=== PATIENT | male | born 1995 | race Asian ===

== ENCOUNTER 2018-09-09 11:56 | Inpatient (IN) | payer MEDICAID, OTHER ==
[~2018-09-09] VITALS: Ht 167.6 cm; Wt 60.0 kg
--- NOTE | 2018-09-09 12:04 | ERD ---
ER Documentation Chief Complaint Chief Complaint SOB HPI The patient is a 23-year-old male, presenting to the ER because of acute resp iratory symptoms. He came from a [facility]. According to the [facility] nurse, he vomited a large amount last night, and has respiratory symptoms this morning. He is unable to provide any history, the history is obtained from the [facility] nurse, medical record and EMS. Past medical history: Cerebral palsy, asthma, cardioplegic, anxiety, history of esophagitis, dysphagia Past surgical history: G-tube ROS Unable to obtain due to his condition Physical Exam Vitals Vital Signs Date Temp Pulse Resp B/P (MAP) Pulse Ox O2 O2 Flow FiO2 Time Delivery Rate 09/09/18 Nasal 2.0 13:30 Cannula 09/09/18 Nasal 2 13:30 Cannula 09/09/18 99.7 118 18 130/82 99 12:00 (98) Physical Exam Const: No acute distress. Head: Atraumatic. Eyes: Normal Conjunctiva. ENT: Normal External Ears, Nose and Mouth. Neck: Full range of motion. No meningismus. Resp: Tachypneic, clear to auscultation anterior and lateral Cardio: Regular tachycardic. Abd: Soft, non distended, normal bowel sounds, non tender. Skin: No petechiae or rashes. Back: No midline or flank tenderness. Ext: Contracted Neur: Awake. Limited due to his condition Psych: Unable to perform due to his condition Result Diagram: 09/09/18 1222 09/09/18 1222 Results 24 hrs Laboratory Tests Test 09/09/18 12:16 09/09/18 12:22 09/09/18 12:57 POC Venous Lactate 2.5 mmol/L White Blood Count 12.1 10^3/ul Red Blood Count 5.46 10^6/ul Hemoglobin 16.6 g/dl Hematocrit 48.3 % Mean Corpuscular Volume 88.5 fl Mean Corpuscular Hemoglobin 30.4 pg Mean Corpuscular 34.4 g/dl Hemoglobin Concent Red Cell Distribution Width 11.7 % Platelet Count 249 10^3/UL Mean Platelet Volume 10.2 fl Immature Granulocytes % 0.400 % Neutrophils % 82.0 % Lymphocytes % 10.3 % Monocytes % 6.4 % Eosinophils % 0.6 % Basophils % 0.3 % Nucleated Red Blood Cells % 0.0 /100WBC Immature Granulocytes # 0.050 10^3/ul Neutrophils # 9.9 10^3/ul Lymphocytes # 1.2 10^3/ul Monocytes # 0.8 10^3/ul Eosinophils # 0.1 10^3/ul Basophils # 0.0 10^3/ul Nucleated Red Blood Cells # 0.0 10^3/ul Sodium Level 144 mmol/L Potassium Level 5.0 mmol/L Chloride Level 102 mmol/L Carbon Dioxide Level 31 mmol/L Anion Gap 11 Blood Urea Nitrogen 14 mg/dl Creatinine 0.54 mg/dl Est Glomerular Filtrat > 60 mL/min Rate mL/min Glucose Level 114 mg/dl Calcium Level 10.0 mg/dl Total Bilirubin 0.6 mg/dl Direct Bilirubin 0.00 mg/dl Indirect Bilirubin 0.6 mg/dl Aspartate Amino 55 IU/L Transf (AST/SGOT) Alanine 58 IU/L Aminotransferase (ALT/SGPT) Alkaline Phosphatase 115 IU/L Troponin I < 0.012 ng/ml Total Protein 8.9 g/dl Albumin 5.2 g/dl Globulin 3.70 g/dl Albumin/Globulin Ratio 1.40 Prothrombin Time 12.8 Sec Prothrombin Time Ratio 1.0 INR International 0.95 Normalized Ratio Activated Partial Thromboplast 32.0 Sec Time Urine Color YELLOW Urine Clarity SLIGHTLY CLOUDY Urine pH 8.0 Urine Specific [place] 1.014 Urine Ketones NEGATIVE mg/dL Urine Nitrite NEGATIVE mg/dL Urine Bilirubin NEGATIVE mg/dL Urine Urobilinogen NEGATIVE mg/dL Urine Leukocyte Esterase NEGATIVE Rosemarie/ul Urine Microscopic RBC 1 /HPF Urine Microscopic WBC 0 /HPF Urine Bacteria FEW /HPF Urine Hemoglobin NEGATIVE mg/dL Urine Glucose NEGATIVE mg/dL Urine Total Protein NEGATIVE mg/dl Current Medications Medications Dose Sig/Ginger Start Time Status Last (Trade) Ordered Route PRN Stop Time Admin Dose Reason Admin Sodium 1,800 ml BOLUS OVER 2 09/09/18 DC 09/09/18 Chloride HOURS STAT 12:05 12:42 (NS) IV* 09/09/18 12:06 Piperacillin 100 ml @ ONCE ONCE 09/09/18 DC 09/09/18 Sod/ 200 mls/hr IVPB 13:00 13:22 Tazobactam 09/09/18 13:29 Sod Procedures/MDM [place] [id number] Radiology Main Line: [phone] DIAGNOSTIC IMAGING REPORT Patient: ANGELIC KRUGER : 1995 Age: 23 Sex: M MR #: [id number] DOS: 09/09/18 1205 Ordering MD: ROCK KOWALSKI MD Location: E/R Room/Bed: PROCEDURE: XR Chest. CLINICAL INDICATION: chest pain TECHNIQUE: Single frontal view of the chest was obtained COMPARISON: None FINDINGS: The heart and mediastinum are within normal limits. The lungs are clear. There is no pleural effusion or pneumothorax. There is marked levoscoliosis of the thoracic spine. There is a healed fracture of the right humerus. RPTAT: AA IMPRESSION: No focal infiltrate. Levoscoliosis of the thoracic spine. .Rafat Roberts MD, MD Date Time Electronically viewed and signed by .Rafat Roberts MD, MD on 09/09/2018 12:31 .S/ CC: ROCK KOWALSKI MD [id number] EKG: Read by emergency physician Rate/Rhythm: Sinus tachycardia 130 beats/min QRS, ST, T-waves: No ST elevation, RWA, RSR' V1, nonspecific T abnormality Impression: Abnormal EKG MEDICAL MAKING DECISION: The patient is a 23-year-old male, presenting with acute severe sepsis of unclear etiology. He was treated with normosaline 30 mm /kg IV, Zosyn IV with good response. The differential diagnoses considered include but are not limited to aspiration pneumonia, pneumonia, UTI, pyelonephritis MDM: Patient's infectious symptoms have not stabilized and the patient is at risk of rapid decompensation. The patient will be admitted for careful hydration, antibiotic therapy, and infectious source control. SEVERE SEPSIS CRITERIA: Infectious source: unknown End organ damage indicated by: [Lactate > 2.0 mmol/L SEPSIS MANAGEMENT Time of recognition of severe sepsis: 12:45pm 3 HOUR BUNDLE Blood cultures x 2 before broad-spectrum antibiotics: [Yes] 30 ml/kg NS bolus [Completed] Initial lactate []2.5 Repeat lactate Pending CRITICAL CARE Critical care time [35] minutes Emergent fluid management while maintaining close respiratory support. Provision of immediate and broad-spectrum antibiotic therapy. Simultaneous assessment for possible sources in order to direct targeted therapy. Consideration for invasive and chemical support to prevent cardiopulmonary collapse. Critical care time is independent of procedures performed. Departure Diagnosis: Primary Impression: Severe sepsis Condition: Stable Comments I discussed the findings with the patient. I discussed the patient with the hospitalist Dr Cazares at 1:35 pm who was made aware of the lab, the treatment, the patient condition. The patient is admitted to Tel Disclaimer: Inadvertent spelling and grammatical errors are likely due to EHR/dictation software use and do not reflect on the overall quality of patient care. Also, please note that the electronic time recorded on this note does not necessarily reflect the actual time of the patient encounter. ROCK KOWALSKI MD Sep 09, 2018 12:04
[2018-09-09] MEDS ORDERED: SODIUM CHLORIDE 0.9% 1L BAG IV* STA (12:05)
[2018-09-09] MEDS ORDERED: PIPER-TAZO 3.375 GM IV (PMX) 100 ML IVPB ONE (13:00)
[2018-09-09] MEDS ORDERED: ALBU2.5V3 NEB (13:56)
[2018-09-09] MEDS ORDERED: CLON2TAB12 GTB (13:56)
[2018-09-09] MEDS ORDERED: TIZA4TAB GTB (13:59)
[2018-09-09] MEDS ORDERED: NYST15CR28 TOP (13:59)
[2018-09-09] MEDS ORDERED: CARAS GTB (13:59)
[2018-09-09] MEDS ORDERED: HYDR-843 GTB (14:01)
[2018-09-09] MEDS ORDERED: GLYC1TAB GTB (14:01)
[2018-09-09] MEDS ORDERED: BACL20TA G-TUBE (14:05)
[2018-09-09] MEDS ORDERED: LEVE500S8 G-TUBE (14:05)
[2018-09-09] MEDS ORDERED: FAMO20TA18 G-TUBE (14:05)
[2018-09-09] MEDS ORDERED: ONDA8TAB9 G-TUBE (14:05)
[2018-09-09] MEDS ORDERED: POLY17PO28 G-TUBE (14:05)
[2018-09-09] MEDS ORDERED: ACET-2047 G-TUBE (14:07)
[2018-09-09] MEDS ORDERED: TIZA2TAB PO (14:07)
--- NOTE | 2018-09-09 15:49 | HP ---
Date/Time of Note Date/Time of Note DATE: 09/09/18 TIME: 15:49 Assessment/Plan VTE Prophylaxis Pharmacological prophylaxis: LMWH Lines/Catheters IV Catheter Type (from [facility]): Saline Lock Assessment/Plan Hospital Course 23-year-old male with underlying cerebral palsy and dysphagia who had a vomiting episode on 09/08/2018 with worsening respiratory distress on 09/09/2018. In the emergency room, the patient was noticed to have sepsis with underlying le ukocytosis, tachycardia, and lactic acidosis. The patient will be admitted to inpatient setting for further treatment and evaluation. 1. Sepsis with underlying leukocytosis, lactic acidosis, and tachycardia, present on a admission. -Etiology unclear. -Possible underlying aspiration pneumonitis. -Continue antimicrobials including coverage for anaerobes. 2. Dysphagia. -Keep n.p.o. -Resume tube feedings. 3. Cerebral palsy. -Continue supportive care. Plan: The patient will be admitted to inpatient telemetry floor. The patient will be started on tube feedings. The patient will be started on DVT prophylaxis. The patient will remain a full code. Activities will be bedrest. The rest of the patient's management will be based on the clinical course and the results of diagnostic studies. The patient was seen in collaboration with Dr. Cazares. Result Diagram: 09/09/18 1222 09/09/18 1222 Results 24hrs Laboratory Tests Test 09/09/18 12:16 09/09/18 12:22 09/09/18 12:57 09/09/18 14:25 POC Venous 2.5 *H 1.3 Lactate White Blood Count 12.1 H Red Blood Count 5.46 Hemoglobin 16.6 Hematocrit 48.3 Mean Corpuscular 88.5 Volume Mean Corpuscular 30.4 Hemoglobin Mean Corpuscular 34.4 Hemoglobin Concen t Red Cell 11.7 Distribution Width Platelet Count 249 Mean Platelet 10.2 Volume Immature 0.400 Granulocytes % Neutrophils % 82.0 H Lymphocytes % 10.3 L Monocytes % 6.4 Eosinophils % 0.6 Basophils % 0.3 Nucleated Red 0.0 Blood Cells % Immature 0.050 H Granulocytes # Neutrophils # 9.9 H Lymphocytes # 1.2 Monocytes # 0.8 Eosinophils # 0.1 Basophils # 0.0 Nucleated Red 0.0 Blood Cells # Sodium Level 144 Potassium Level 5.0 Chloride Level 102 Carbon Dioxide 31 Level Anion Gap 11 Blood Urea 14 Nitrogen Creatinine 0.54 L Est Glomerular > 60 Filtrat Rate mL/min Glucose Level 114 Calcium Level 10.0 Total Bilirubin 0.6 Direct Bilirubin 0.00 Indirect 0.6 Bilirubin Aspartate Amino 55 H Transf (AST/SGOT) Alanine 58 Aminotransferase (ALT/SGPT) Alkaline 115 Phosphatase Troponin I < 0.012 Total Protein 8.9 H Albumin 5.2 H Globulin 3.70 H Albumin/Globulin 1.40 Ratio Prothrombin Time 12.8 Prothrombin Time 1.0 Ratio INR International 0.95 Normalized Ratio Activated 32.0 Partial Thrombopl ast Time Urine Color YELLOW Urine Clarity SLIGHTLY CLOUDY A Urine pH 8.0 Urine Specific 1.014 [place] Urine Ketones NEGATIVE Urine Nitrite NEGATIVE Urine Bilirubin NEGATIVE Urine NEGATIVE Urobilinogen Urine Leukocyte NEGATIVE Esterase Urine Microscopic 1 RBC Urine Microscopic 0 WBC Urine Bacteria FEW A Urine Hemoglobin NEGATIVE Urine Glucose NEGATIVE Urine Total NEGATIVE Protein HPI/ROS Admit Date/Time Admit Date/Time Hx of Present Illness This is a 23-year-old male with underlying cerebral palsy and chronically bedridden status. The patient was brought to the emergency room because of dyspnea. The patient was also reported to have vomiting last night with worsening symptoms of cough and respiratory distress. Therefore, the patient was brought to the emergency room. In the emergency room, the patient was noticed to have leukocytosis. The patient also had underlying tachycardia and febrile illness. The patient had lactic acidosis. The patient's chest x-ray was negative for any acute infiltrates. A code sepsis was activated. The patient was given IV fluid bolus. The patient was also given a single dose of IV Zosyn. The patient's urinalysis was essentially negative. The patient has underlying cerebral palsy and is nonverbal. Therefore, the details of HPI were obtained by talking to the ER staff as well as by reviewing the patient's medical records. ROS Subjective hx not possible: pt non-verbal PMH/Family/Social Past Medical History 1. Cerebral palsy. 2. Dysphagia. 3. Contractures. Coded Allergies: erythromycin base (Verified Allergy, Unknown, 09/09/18) vancomycin (Verified Allergy, Unknown, 09/09/18) Past Surgical History 1. Abdominal surgery. 2. G-tube placement. Social History The patient is bedridden. The patient is a resident of a [id number]. Alcohol Use: none Smoking Status: Never smoker Drug Use: none Exam/Review of Systems Vital Signs Vitals Vital Signs Date Temp Pulse Resp B/P (MAP) Pulse Ox O2 O2 Flow FiO2 Time Delivery Rate 09/09/18 100.2 123 22 135/84 97 Nasal 2.0 15:24 (101) Cannula Exam Exam General: Adequately build 23 year-old male lying in bed in no apparent distress. HEENT: Normocephalic, atraumatic. Eyes: Anicteric sclerae, conjunctivae clear. ENT: Nasal septum is midline, oral mucosa is dry. Neck supple, no JVD noticed. Respiratory: Bilaterally diminished breath sounds. No use of accessory muscles of respiration. No adventitious breath sounds. Cardiovascular: S1, S2 heard. Regular rate and rhythm. Abdomen: Surgical scar on the abdominal wall. Left upper quadrant G-tube in place. Genitourinary: Deferred. Extremities: No cyanosis, no clubbing, no edema. Peripheral pulses palpable. Neurologic: Encephalopathic. Contracture of the left upper extremity and right lower extremity. Skin: Normal skin turgor. No skin rashes. RAIVNDRA ELIZABETH NP Sep 09, 2018 15:49
[2018-09-09] MEDS ORDERED: NACL 0.9% 3 ML SYG IV SCH (16:00)
[2018-09-09] MEDS ORDERED: ONDANSETRON 4 MG INJ IV PRN (16:00)
[2018-09-09 17:17] VITALS: PULSE 126
[2018-09-09 18:05] VITALS: Ht 167.6 cm; Wt 60.0 kg
[2018-09-09] MEDS: PIPER-TAZO 3.375 GM IV (PMX) 100 ML IVPB SCH (18:57)
[2018-09-09] MEDS: SOD CHLORIDE 0.9% 1,000 ML IV SCH ×2 (18:57→22:20)
[2018-09-09 19:42] VITALS: PULSE 140
[2018-09-09] MEDS: ACETAMINOPHEN 650MG/20.3ML CUP GTB PRN (19:56)
[2018-09-09 20:00] VITALS: PULSE 132
[2018-09-09 20:10] VITALS: BP 128/68; PULSE 138; RESP 22
[2018-09-09] MEDS ORDERED: ONDANSETRON 4 MG TAB GTB PRN (21:00)
[2018-09-09] MEDS ORDERED: hydrOXYzine HCL 25 MG TAB GTB PRN (21:00)
[2018-09-09] MEDS ORDERED: SOD CHLORIDE 0.9% 500 ML IV ONE (21:00)
[2018-09-09] MEDS ORDERED: TIZANIDINE 2 MG TAB PO PRN (21:00)
[2018-09-09] MEDS ORDERED: ACETAMINOPHEN 325 MG TAB GTB PRN (21:00)
[2018-09-09] MEDS: ALBUTEROL 0.083% (NEB) 2.5 MG/3 ML AMP NEB SCH (21:50)
[2018-09-09] MEDS: BACLOFEN 10 MG TAB GTB SCH (22:18)
[2018-09-09] MEDS: clonAZEPAM 0.5 MG TAB GTB SCH (22:18)
[2018-09-09] MEDS: FAMOTIDINE 20 MG TAB GTB SCH (22:19)
[2018-09-09] MEDS: POLYETHYLENE GLYCOL 17 GM PACKET GTB SCH (22:19)
[2018-09-09] MEDS: LEVETIRACETAM (100 MG/ML) 5ML CUP GTB SCH (22:19)
[2018-09-09] MEDS: SUCRALFATE (100 MG/ML) 10ML CUP GTB SCH (22:19)
[2018-09-09] MEDS: NYSTATIN 15 GM CR TOP SCH (22:30)
[2018-09-09] MEDS: GLYCOPYRROLATE 1 MG TAB GTB SCH (23:53)
[2018-09-10] VITALS (15 sets, daily range): BP systolic 94–137; BP diastolic 55–79; PULSE 86–144; RESP 17–22
[2018-09-10] MEDS: PIPER-TAZO 3.375 GM IV (PMX) 100 ML IVPB SCH ×4 (00:02→18:00)
[2018-09-10] MEDS: TIZANIDINE 4 MG TAB GTB SCH ×2 (00:04→21:00)
[2018-09-10] MEDS ORDERED: LORAZEPAM 2 MG INJ IV PRN (04:00)
[2018-09-10] MEDS: NYSTATIN 15 GM CR TOP SCH ×2 (09:00→22:36)
[2018-09-10] MEDS: ALBUTEROL 0.083% (NEB) 2.5 MG/3 ML AMP NEB SCH ×2 (09:36→19:28)
[2018-09-10] MEDS: GLYCOPYRROLATE 1 MG TAB GTB SCH ×3 (10:00→22:38)
[2018-09-10] MEDS: BACLOFEN 10 MG TAB GTB SCH ×4 (10:00→22:38)
[2018-09-10] MEDS: POLYETHYLENE GLYCOL 17 GM PACKET GTB SCH ×2 (10:00→22:38)
[2018-09-10] MEDS: clonAZEPAM 0.5 MG TAB GTB SCH ×3 (10:00→22:51)
[2018-09-10] MEDS: FAMOTIDINE 20 MG TAB GTB SCH ×2 (10:00→22:37)
[2018-09-10] MEDS: LEVETIRACETAM (100 MG/ML) 5ML CUP GTB SCH ×2 (10:00→22:37)
[2018-09-10] MEDS: SUCRALFATE (100 MG/ML) 10ML CUP GTB SCH ×2 (10:00→22:37)
[2018-09-10] MEDS: ENOXAPARIN 40 MG/0.4 ML SYG SC SCH (10:55)
[2018-09-10] MEDS ORDERED: ACETAMINOPHEN 650 MG SUPP PR PRN (13:00)
--- NOTE | 2018-09-10 14:22 | PN ---
Date/Time of Note Date/Time of Note DATE: 09/10/18 TIME: 14:18 Assessment/Plan VTE Prophylaxis Risk score (from [facility])>0 risk: 4 SCD applied (from [facility]): No SCD contraindicated: other Pharmacological prophylaxis: LMWH Lines/Catheters IV [facility]from [facility] Saline Lock Urinary Cath still in place: No Assessment/Plan Assessment/Plan 1. Sepsis with underlying leukocytosis, lactic acidosis, and tachycardia, present on a admission, IVF and antibiotics 2. Likely aspiration pneumonia, on zosyn 3. Dysphagia, tube feeding. 4. Cerebral palsy. Continue supportive care. Result Diagram: 09/10/18 0842 09/10/18 0842 Results 24hrs Laboratory Tests Test 09/09/18 14:25 09/09/18 18:49 09/10/18 08:42 POC Venous Lactate 1.3 Lactic Acid Level 1.3 2.1 *H White Blood Count 14.3 H Red Blood Count 4.85 Hemoglobin 14.8 Hematocrit 44.1 Mean Corpuscular Volume 90.9 Mean Corpuscular Hemoglobin 30.5 Mean Corpuscular Hemoglobin Concent 33.6 Red Cell Distribution Width 12.0 Platelet Count 211 Mean Platelet Volume 10.0 Immature Granulocytes % 0.600 H Neutrophils % 91.0 H Lymphocytes % 4.8 L Monocytes % 3.0 Eosinophils % 0.2 Basophils % 0.4 Nucleated Red Blood Cells % 0.0 Immature Granulocytes # 0.090 H Neutrophils # 13.0 H Lymphocytes # 0.7 L Monocytes # 0.4 Eosinophils # 0.0 Basophils # 0.1 Nucleated Red Blood Cells # 0.0 Sodium Level 146 H Potassium Level 4.1 Chloride Level 106 Carbon Dioxide Level 21 # Anion Gap 19 #H Blood Urea Nitrogen 14 Creatinine 0.61 Est Glomerular Filtrat Rate mL/min > 60 Glucose Level 89 Calcium Level 9.1 Phosphorus Level 3.5 Magnesium Level 2.0 Total Bilirubin 2.2 H Direct Bilirubin 0.00 Indirect Bilirubin 2.2 H Aspartate Amino Transf (AST/SGOT) 56 H Alanine Aminotransferase (ALT/SGPT) 53 Alkaline Phosphatase 106 Total Protein 7.5 # Albumin 4.7 Globulin 2.80 Albumin/Globulin Ratio 1.67 Amylase Level 81 Lipase 37 Subjective 24 Hr Interval Summary Free Text/Dictation no distress Exam/Review of Systems Exam Vitals Vital Signs Date Temp Pulse Resp B/P (MAP) Pulse Ox O2 O2 Flow FiO2 Time Delivery Rate 09/10/18 2.0 28 13:22 09/10/18 101.2 13:19 09/10/18 141 12:13 09/10/18 18 115/58 95 11:50 (77) 09/10/18 Nasal 09:15 Cannula Intake and Output 09/09/18 09/09/18 09/10/18 1414:59 22:59 06:59 IntakeIntake Total 500 ml OutputOutput Total 450 ml BalanceBalance 50 ml Constitutional: alert, non-verbal Head: normocephalic, atraumatic Eyes: nl conjunctiva, EOMI, nl lids, PERRL ENMT: nl external ears & nose, nl lips & teeth, nl nasal mucosa & septum, mucosa pink and moist Neck: supple, non-tender Respiratory: clear to auscultation, normal air movement Cardiovascular: regular rate and rhythm Gastrointestinal: soft, nl liver, spleen Extremities: normal pulses Neurological: confused Results Results 24hrs Laboratory Tests Test 09/09/18 14:25 09/09/18 18:49 09/10/18 08:42 POC Venous Lactate 1.3 Lactic Acid Level 1.3 2.1 *H White Blood Count 14.3 H Red Blood Count 4.85 Hemoglobin 14.8 Hematocrit 44.1 Mean Corpuscular Volume 90.9 Mean Corpuscular Hemoglobin 30.5 Mean Corpuscular Hemoglobin Concent 33.6 Red Cell Distribution Width 12.0 Platelet Count 211 Mean Platelet Volume 10.0 Immature Granulocytes % 0.600 H Neutrophils % 91.0 H Lymphocytes % 4.8 L Monocytes % 3.0 Eosinophils % 0.2 Basophils % 0.4 Nucleated Red Blood Cells % 0.0 Immature Granulocytes # 0.090 H Neutrophils # 13.0 H Lymphocytes # 0.7 L Monocytes # 0.4 Eosinophils # 0.0 Basophils # 0.1 Nucleated Red Blood Cells # 0.0 Sodium Level 146 H Potassium Level 4.1 Chloride Level 106 Carbon Dioxide Level 21 # Anion Gap 19 #H Blood Urea Nitrogen 14 Creatinine 0.61 Est Glomerular Filtrat Rate mL/min > 60 Glucose Level 89 Calcium Level 9.1 Phosphorus Level 3.5 Magnesium Level 2.0 Total Bilirubin 2.2 H Direct Bilirubin 0.00 Indirect Bilirubin 2.2 H Aspartate Amino Transf (AST/SGOT) 56 H Alanine Aminotransferase (ALT/SGPT) 53 Alkaline Phosphatase 106 Total Protein 7.5 # Albumin 4.7 Globulin 2.80 Albumin/Globulin Ratio 1.67 Amylase Level 81 Lipase 37 Medications Medication Current Medications IV Flush (NS 3 ml) 3 ml PER PROTOCOL IV ; Start 09/09/18 at 16:00 Ondansetron HCl (Zofran Inj) 4 mg Q6H PRN IV NAUSEA/VOMITING Last administered on 09/09/18 23:54; Admin Dose 4 MG; Start 09/09/18 at 16:00 Piperacillin Sod/ Tazobactam Sod 100 ml @ 200 mls/hr Q6 IVPB Last administered on 09/10/18 06:26; Admin Dose 200 MLS/HR; Start 09/09/18 at 18:00 Sodium Chloride 1,000 ml @ 70 mls/hr [id number] IV Last administered on 09/09/18 22:20; Admin Dose 100 MLS/HR; Start 09/09/18 at 16:00 Acetaminophen (Tylenol Liquid) 650 mg Q4H PRN GTB MILD PAIN(1-3)OR ELEVATED TEMP Last administered on 09/09/18 19:56; Admin Dose 650 MG; Start 09/09/18 at 16:30 Enoxaparin Sodium (Lovenox) 40 mg DAILY SC Last administered on 09/10/18 10:55; Admin Dose 40 MG; Start 09/10/18 at 09:00 Acetaminophen (Tylenol Tab) 650 mg Q6H PRN GTB PAIN LEVEL 4-6; Start 09/09/18 at 21:00 Albuterol (Proventil 0.083% (Neb)) 2.5 mg BID RESP THERAPY NEB Last administered on 09/10/18 09:36; Admin Dose 2.5 MG; Start 09/09/18 at 21:00 Baclofen (Lioresal) 20 mg QID GTB Last administered on 09/09/18 22:18; Admin Dose 20 MG; Start 09/09/18 at 21:00 Clonazepam (Klonopin) 2 mg TID GTB Last administered on 09/09/18 22:18; Admin Dose 2 MG; Start 09/09/18 at 21:00 Famotidine (Pepcid) 20 mg BID GTB Last administered on 09/09/18 22:19; Admin Dose 20 MG; Start 09/09/18 at 21:00 Glycopyrrolate (Robinul) 1 mg TID GTB Last administered on 09/09/18 23:53; Admin Dose 1 MG; Start 09/09/18 at 22:00 Hydroxyzine HCl (Atarax) 25 mg Q8H PRN GTB ANXIETY; Start 09/09/18 at 21:00 Levetiracetam (Keppra Liquid) 250 mg BID GTB Last administered on 09/09/18 22:19; Admin Dose 250 MG; Start 09/09/18 at 21:00 Nystatin (Nystatin Cr) 1 applic BID TOP Last administered on 09/09/18 22:30; Admin Dose 1 APPLIC; Start 09/09/18 at 22:30 Ondansetron HCl (Zofran Tab) 8 mg Q6H PRN GTB NAUSEA AND/OR VOMITING; Start 09/09/18 at 21:00 Polyethylene Glycol (Miralax) 17 gm BID GTB Last administered on 09/09/18 22:19; Admin Dose 17 GM; Start 09/09/18 at 21:00 Sucralfate (Carafate Susp) 1 gm BID GTB Last administered on 09/09/18 22:19; Admin Dose 1 GM; Start 09/09/18 at 21:00 Tizanidine HCl (Zanaflex) 2 mg Q6H PRN PO SPASTICITY; Start 09/09/18 at 21:00 Tizanidine HCl (Zanaflex) 8 mg HS GTB Last administered on 09/10/18at 00:04; Admin Dose 8 MG; Start 09/09/18 at 22:00 Lorazepam (Ativan) 1 mg Q6H PRN IV Aggitation; Start 09/10/18 at 04:00 Acetaminophen (Tylenol Supp) 650 mg Q6H PRN MI FEVER Last administered on 09/10/18 13:19; Admin Dose 650 MG; Start 09/10/18 at 13:00 JOSE PALMA MD Sep 10, 2018 14:22
[2018-09-10] MEDS: SOD CHLORIDE 0.9% 1,000 ML IV SCH (15:54)
[2018-09-10] MEDS: ACETAMINOPHEN 650MG/20.3ML CUP GTB PRN (22:53)
[2018-09-11] VITALS (15 sets, daily range): BP systolic 92–138; BP diastolic 50–88; PULSE 79–133; RESP 17–20
[2018-09-11] MEDS: PIPER-TAZO 3.375 GM IV (PMX) 100 ML IVPB SCH ×4 (00:20→18:00)
[2018-09-11] MEDS: SOD CHLORIDE 0.9% 1,000 ML IV SCH ×3 (01:53→11:42)
[2018-09-11] MEDS: FAMOTIDINE 20 MG TAB GTB SCH ×2 (08:59→21:00)
[2018-09-11] MEDS: GLYCOPYRROLATE 1 MG TAB GTB SCH ×3 (08:59→21:00)
[2018-09-11] MEDS: POLYETHYLENE GLYCOL 17 GM PACKET GTB SCH ×2 (08:59→21:00)
[2018-09-11] MEDS: BACLOFEN 10 MG TAB GTB SCH ×4 (08:59→21:00)
[2018-09-11] MEDS: SUCRALFATE (100 MG/ML) 10ML CUP GTB SCH ×2 (08:59→21:00)
[2018-09-11] MEDS: LEVETIRACETAM (100 MG/ML) 5ML CUP GTB SCH ×2 (08:59→21:00)
[2018-09-11] MEDS: ENOXAPARIN 40 MG/0.4 ML SYG SC SCH (09:02)
[2018-09-11] MEDS: NYSTATIN 15 GM CR TOP SCH ×2 (09:08→21:00)
[2018-09-11] MEDS: clonAZEPAM 0.5 MG TAB GTB SCH ×3 (09:09→21:00)
[2018-09-11] MEDS: ALBUTEROL 0.083% (NEB) 2.5 MG/3 ML AMP NEB SCH ×2 (09:20→21:07)
--- NOTE | 2018-09-11 13:07 | PN ---
Date/Time of Note Date/Time of Note DATE: 09/11/18 TIME: 13:04 Assessment/Plan VTE Prophylaxis Risk score (from [facility] [place])>0 risk: 5 SCD applied (from [facility] [place]): No SCD contraindicated: other Pharmacological prophylaxis: LMWH Lines/Catheters IV Catheter Type (from [facility]): Peripheral IV Urinary Cath still in place: No Assessment/Plan Assessment/Plan 1. Sepsis, improving, on IVF 2. Likely aspiration pneumonia, on zosyn 3. Dysphagia, tube feeding. 4. Cerebral palsy. Continue supportive care. 5. Hypernatremia, increase water G-tube flush 6. DVT prophylaxis: lovenox Result Diagram: 09/11/18 0744 09/11/18 0744 Results 24hrs Laboratory Tests Test 09/11/18 07:44 White Blood Count 9.3 # Red Blood Count 4.73 Hemoglobin 14.4 Hematocrit 42.9 Mean Corpuscular Volume 90.7 Mean Corpuscular Hemoglobin 30.4 Mean Corpuscular Hemoglobin Concent 33.6 Red Cell Distribution Width 12.2 Platelet Count 217 Mean Platelet Volume 10.4 Immature Granulocytes % 0.400 Neutrophils % 70.7 Lymphocytes % 19.4 Monocytes % 8.3 Eosinophils % 0.8 Basophils % 0.4 Nucleated Red Blood Cells % 0.0 Immature Granulocytes # 0.040 H Neutrophils # 6.6 Lymphocytes # 1.8 Monocytes # 0.8 Eosinophils # 0.1 Basophils # 0.0 Nucleated Red Blood Cells # 0.0 Sodium Level 150 H Potassium Level 4.3 Chloride Level 108 Carbon Dioxide Level 28 Anion Gap 14 H Blood Urea Nitrogen 15 Creatinine 0.54 L Est Glomerular Filtrat Rate mL/min > 60 Glucose Level 91 Lactic Acid Level 1.7 Calcium Level 9.3 Subjective 24 Hr Interval Summary Free Text/Dictation low fever tachycardia Exam/Review of Systems Exam Vitals Vital Signs Date Temp Pulse Resp B/P (MAP) Pulse Ox O2 O2 Flow FiO2 Time Delivery Rate 09/11/18 116 12:22 09/11/18 100.1 19 117/72 95 10:00 (87) 09/11/18 2.0 09:20 09/11/18 Nasal 09:20 Cannula 09/10/18 28 13:22 Intake and Output 09/10/18 09/10/18 09/11/18 1515:00 23:00 07:00 IntakeIntake Total 140 ml 1390 ml OutputOutput Total 1000 ml 600 ml BalanceBalance -860 ml 790 ml Constitutional: alert, non-verbal Head: normocephalic, atraumatic Eyes: nl conjunctiva, EOMI, nl lids, PERRL ENMT: nl external ears & nose, nl lips & teeth Neck: supple, non-tender Respiratory: other (rhonchi) Cardiovascular: regular rate and rhythm, nl pulses; No bruits, No diastolic murmur, No edema, No gallop, No irregular rhythm, No jugular venous distention (JVD), No murmurs/extra sounds, No rub, No systolic murmur, No S3, No S4, No other Gastrointestinal: soft, nl liver, spleen Extremities: edema Neurological: confused Results Results 24hrs Laboratory Tests Test 09/11/18 07:44 White Blood Count 9.3 # Red Blood Count 4.73 Hemoglobin 14.4 Hematocrit 42.9 Mean Corpuscular Volume 90.7 Mean Corpuscular Hemoglobin 30.4 Mean Corpuscular Hemoglobin Concent 33.6 Red Cell Distribution Width 12.2 Platelet Count 217 Mean Platelet Volume 10.4 Immature Granulocytes % 0.400 Neutrophils % 70.7 Lymphocytes % 19.4 Monocytes % 8.3 Eosinophils % 0.8 Basophils % 0.4 Nucleated Red Blood Cells % 0.0 Immature Granulocytes # 0.040 H Neutrophils # 6.6 Lymphocytes # 1.8 Monocytes # 0.8 Eosinophils # 0.1 Basophils # 0.0 Nucleated Red Blood Cells # 0.0 Sodium Level 150 H Potassium Level 4.3 Chloride Level 108 Carbon Dioxide Level 28 Anion Gap 14 H Blood Urea Nitrogen 15 Creatinine 0.54 L Est Glomerular Filtrat Rate mL/min > 60 Glucose Level 91 Lactic Acid Level 1.7 Calcium Level 9.3 Medications Medication Current Medications IV Flush (NS 3 ml) 3 ml PER PROTOCOL IV ; Start 09/09/18 at 16:00 Ondansetron HCl (Zofran Inj) 4 mg Q6H PRN IV NAUSEA/VOMITING Last administered on 09/09/18at 23:54; Admin Dose 4 MG; Start 09/09/18 at 16:00 Piperacillin Sod/ Tazobactam Sod 100 ml @ 200 mls/hr Q6 IVPB Last administered on 09/11/18at 11:53; Admin Dose 200 MLS/HR; Start 09/09/18 at 18:00 Acetaminophen (Tylenol Liquid) 650 mg Q4H PRN GTB MILD PAIN(1-3)OR ELEVATED TEMP Last administered on 09/10/18 22:53; Admin Dose 650 MG; Start 09/09/18 at 16:30 Enoxaparin Sodium (Lovenox) 40 mg DAILY SC Last administered on 09/11/18 09:02; Admin Dose 40 MG; Start 09/10/18 at 09:00 Acetaminophen (Tylenol Tab) 650 mg Q6H PRN GTB PAIN LEVEL 4-6; Start 09/09/18 at 21:00 Albuterol (Proventil 0.083% (Neb)) 2.5 mg BID RESP THERAPY NEB Last administered on 09/11/18 09:20; Admin Dose 2.5 MG; Start 09/09/18 at 21:00 Baclofen (Lioresal) 20 mg QID GTB Last administered on 09/11/18 08:59; Admin Dose 20 MG; Start 09/09/18 at 21:00 Clonazepam (Klonopin) 2 mg TID GTB Last administered on 09/11/18 09:09; Admin Dose 2 MG; Start 09/09/18 at 21:00 Famotidine (Pepcid) 20 mg BID GTB Last administered on 09/11/18 08:59; Admin Dose 20 MG; Start 09/09/18 at 21:00 Glycopyrrolate (Robinul) 1 mg TID GTB Last administered on 09/11/18 08:59; Admin Dose 1 MG; Start 09/09/18 at 22:00 Hydroxyzine HCl (Atarax) 25 mg Q8H PRN GTB ANXIETY; Start 09/09/18 at 21:00 Levetiracetam (Keppra Liquid) 250 mg BID GTB Last administered on 09/11/18 08:59; Admin Dose 250 MG; Start 09/09/18 at 21:00 Nystatin (Nystatin Cr) 1 applic BID TOP Last administered on 09/11/18 09:08; Admin Dose 1 APPLIC; Start 09/09/18 at 22:30 Ondansetron HCl (Zofran Tab) 8 mg Q6H PRN GTB NAUSEA AND/OR VOMITING; Start 09/09/18 at 21:00 Polyethylene Glycol (Miralax) 17 gm BID GTB Last administered on 09/11/18 08:59; Admin Dose 17 GM; Start 09/09/18 at 21:00 Sucralfate (Carafate Susp) 1 gm BID GTB Last administered on 09/11/18 08:59; Admin Dose 1 GM; Start 09/09/18 at 21:00 Tizanidine HCl (Zanaflex) 2 mg Q6H PRN PO SPASTICITY Last administered on 09/10/18at 22:36; Admin Dose 2 MG; Start 09/09/18 at 21:00 Tizanidine HCl (Zanaflex) 8 mg HS GTB Last administered on 09/10/18at 21:00; Admin Dose 8 MG; Start 09/09/18 at 22:00 Lorazepam (Ativan) 1 mg Q6H PRN IV Aggitation; Start 09/10/18 at 04:00 Acetaminophen (Tylenol Supp) 650 mg Q6H PRN [place] FEVER Last administered on 09/10/18at 13:19; Admin Dose 650 MG; Start 09/10/18 at 13:00 Potassium Chloride 10 meq/ Sodium Chloride 1,005 ml @ 100 mls/hr Q10H3M IV ; Start 09/11/18 at 13:00; Status JOSE TYSON MD Sep 11, 2018 13:07
[2018-09-11] MEDS: POTASSIUM CHLORIDE 10 MEQ in SOD CHLORIDE 0.45% 1,000 ML IV SCH ×2 (15:01→23:25)
[2018-09-11] MEDS: TIZANIDINE 4 MG TAB GTB SCH (21:00)
[2018-09-11] MEDS ORDERED: HALOPERIDOL 5 MG INJ IM ONE (21:30)
[2018-09-11] MEDS: LORAZEPAM 2 MG INJ IV PRN (22:35)
[2018-09-11] MEDS: LEVETIRACETAM IV 250 MG in DEXTROSE 5% 100 ML IVPB SCH (23:13)
[2018-09-12] VITALS (16 sets, daily range): BP systolic 119–147; BP diastolic 65–96; PULSE 101–150; RESP 18–23
[2018-09-12] MEDS: PIPER-TAZO 3.375 GM IV (PMX) 100 ML IVPB SCH ×4 (00:30→17:30)
[2018-09-12] MEDS: ALBUTEROL 0.083% (NEB) 2.5 MG/3 ML AMP NEB SCH ×2 (08:33→20:01)
[2018-09-12] MEDS: GLYCOPYRROLATE 1 MG TAB GTB SCH ×3 (09:00→20:34)
[2018-09-12] MEDS: FAMOTIDINE 20 MG TAB GTB SCH (09:00)
[2018-09-12] MEDS: NYSTATIN 15 GM CR TOP SCH ×2 (09:00→20:36)
[2018-09-12] MEDS: SUCRALFATE (100 MG/ML) 10ML CUP GTB SCH ×2 (09:00→20:34)
[2018-09-12] MEDS: POLYETHYLENE GLYCOL 17 GM PACKET GTB SCH ×2 (09:00→20:34)
[2018-09-12] MEDS: BACLOFEN 10 MG TAB GTB SCH ×4 (09:00→20:35)
[2018-09-12] MEDS: clonAZEPAM 0.5 MG TAB GTB SCH ×3 (09:00→20:34)
[2018-09-12] MEDS: POTASSIUM CHLORIDE 10 MEQ in SOD CHLORIDE 0.45% 1,000 ML IV SCH ×2 (09:06→19:09)
[2018-09-12] MEDS: LEVETIRACETAM IV 250 MG in DEXTROSE 5% 100 ML IVPB SCH ×2 (09:48→21:54)
[2018-09-12] MEDS ORDERED: SOD CHLORIDE 0.9% 500 ML IV ONE (10:30)
--- NOTE | 2018-09-12 10:43 | CONS ---
Assessment/Plan Assessment/Plan Hospital Course (Demo Recall) Summary Assessment and Plan: Assessment: Dislodged g-tube- replaced Sepsis- improving -Questionable aspiration PNA- continue Zosyn Dysphagia- with g-tube Cerebral palsy Chronically bedridden with contractures Plan: CXR KUB with Gastrografin to confirm placement- hold TF until confirmation is confirmed Monitor labs Pt on ABX Further recommendations based on clinical course Patient seen in collaboration with Dr. Vang CC: MEMO VANG ; Consultation Date/Type/Reason Admit Date/Time Date of Consultation: Sep 12, 2018 Type of Consult GI Reason for Consultation Dislodged out-G-tube Date/Time of Note DATE: 09/12/18 TIME: 10:33 Hx of Present Illness This is a 23-year-old male who was a non-historian therefore HPI is limited and HPI obtained from medical records patient with past medical history of cerebral palsy, dysphagia requiring gastrostomy tube, chronically bedridden with contractions who is brought into the emergency department due to hernia was noted to have increased vomiting and respiratory distress. During hos pitalization patient pulled out his G-tube was reinserted during the night GI was consulted for further evaluation. At time of evaluation patient with noted dark emesis from mouth and on bed. G-tube was removed assessed and replaced without difficulty. A KUB with Gastrografin has been ordered and is currently pending his chest x-ray is also been ordered and is currently pending. Labs to check today show normal hemoglobin as well as normal WBC normal lactic acid of 1.7. Will await results of KUB with Gastrografin and chest x-ray. Dark emesis likely from G-tube trauma. We will continue to monitor Subjective hx not possible: pt non-verbal Past Medical History Home Meds Reported Medications Acetaminophen* (Acetaminophen*) 650 Mg Tablet, 650 MG G-TUBE Q6H PRN for PAIN LEVEL 4-6, #30 TAB 09/09/18 Tizanidine Hcl* (Tizanidine Hcl*) 2 Mg Tablet, 2 MG PO Q6H PRN for SPASTICITY, TAB 09/09/18 Ondansetron Hcl* (Zofran*) 8 Mg Tablet, 8 MG G-TUBE Q6H PRN for NAUSEA AND OR VOMITING, TAB 09/09/18 Polyethylene Glycol* (Polyethylene Glycol*) 17 Gm Powd.pack, 17 GM G-TUBE BID, #30 PACKET 09/09/18 Levetiracetam* (Levetiracetam*) 500 Mg/5 Ml Solution, 250 MG G-TUBE BID, ML 09/09/18 Famotidine* (Famotidine*) 20 Mg Tablet, 20 MG G-TUBE BID, #60 TAB 09/09/18 Baclofen* (Baclofen*) 20 Mg Tablet, 20 MG G-TUBE QID, TAB 09/09/18 Glycopyrrolate* (Glycopyrrolate*) 1 Mg Tablet, 1 MG GTB TID, TAB 09/09/18 Hydroxyzine Hcl* (Hydroxyzine Hcl*) 25 Mg Tablet, 25 MG GTB Q8H PRN for ANXIETY, #30 TAB 09/09/18 Tizanidine Hcl* (Tizanidine Hcl*) 4 Mg Tablet, 8 MG GTB hs, TAB 09/09/18 Sucralfate* (Carafate*) 1 Gm/10 Ml Susp, 1 GM GTB BID, EA 09/09/18 Nystatin* (Nystatin*) 15 Gm Cr, 1 APPLIC TOP BID, #1 TUB 09/09/18 Albuterol Sulfate* (Albuterol Sulfate* Neb) 0.083%-3 Ml Neb, 2.5 MG NEB BID, #30 VIAL 09/09/18 Clonazepam* (Clonazepam*) 2 Mg Tablet, 2 MG GTB TID, TAB 09/09/18 Medications Current Medications IV Flush (NS 3 ml) 3 ml PER PROTOCOL IV ; Start 09/09/18 at 16:00 Ondansetron HCl (Zofran Inj) 4 mg Q6H PRN IV NAUSEA/VOMITING Last administered on 09/09/18at 23:54; Admin Dose 4 MG; Start 09/09/18 at 16:00 Piperacillin Sod/ Tazobactam Sod 100 ml @ 200 mls/hr Q6 IVPB Last administered on 09/12/18at 05:53; Admin Dose 200 MLS/HR; Start 09/09/18 at 18:00 Acetaminophen (Tylenol Liquid) 650 mg Q4H PRN GTB MILD PAIN(1-3)OR ELEVATED TEMP Last administered on 09/10/18at 22:53; Admin Dose 650 MG; Start 09/09/18 at 16:30 Enoxaparin Sodium (Lovenox) 40 mg DAILY SC Last administered on 09/11/18 09:02; Admin Dose 40 MG; Start 09/10/18 at 09:00 Acetaminophen (Tylenol Tab) 650 mg Q6H PRN GTB PAIN LEVEL 4-6; Start 09/09/18 at 21:00 Albuterol (Proventil 0.083% (Neb)) 2.5 mg BID RESP THERAPY NEB Last administered on 09/12/18 08:33; Admin Dose 2.5 MG; Start 09/09/18 at 21:00 Baclofen (Lioresal) 20 mg QID GTB Last administered on 09/11/18 17:08; Admin Dose 20 MG; Start 09/09/18 at 21:00 Clonazepam (Klonopin) 2 mg TID GTB Last administered on 09/11/18 14:18; Admin Dose 2 MG; Start 09/09/18 at 21:00 Famotidine (Pepcid) 20 mg BID GTB Last administered on 09/11/18 08:59; Admin Dose 20 MG; Start 09/09/18 at 21:00 Glycopyrrolate (Robinul) 1 mg TID GTB Last administered on 09/11/18 14:17; Admin Dose 1 MG; Start 09/09/18 at 22:00 Hydroxyzine HCl (Atarax) 25 mg Q8H PRN GTB ANXIETY; Start 09/09/18 at 21:00 Levetiracetam (Keppra Liquid) 250 mg BID GTB Last administered on 09/11/18 08:59; Admin Dose 250 MG; Start 09/09/18 at 21:00 Nystatin (Nystatin Cr) 1 applic BID TOP Last administered on 09/12/18 09:00; Admin Dose 1 APPLIC; Start 09/09/18 at 22:30 Ondansetron HCl (Zofran Tab) 8 mg Q6H PRN GTB NAUSEA AND/OR VOMITING; Start 09/09/18 at 21:00 Polyethylene Glycol (Miralax) 17 gm BID GTB Last administered on 09/11/18 08:59; Admin Dose 17 GM; Start 09/09/18 at 21:00 Sucralfate (Carafate Susp) 1 gm BID GTB Last administered on 09/11/18 08:59; Admin Dose 1 GM; Start 09/09/18 at 21:00 Tizanidine HCl (Zanaflex) 2 mg Q6H PRN PO SPASTICITY Last administered on 09/10/18 22:36; Admin Dose 2 MG; Start 09/09/18 at 21:00 Tizanidine HCl (Zanaflex) 8 mg HS GTB Last administered on 09/10/18 21:00; Admin Dose 8 MG; Start 09/09/18 at 22:00 Acetaminophen (Tylenol Supp) 650 mg Q6H PRN [place] FEVER Last administered on 09/10/18 13:19; Admin Dose 650 MG; Start 09/10/18 at 13:00 Potassium Chloride 10 meq/ Sodium Chloride 1,005 ml @ 100 mls/hr Q10H3M IV Last administered on 09/11/18 23:25; Admin Dose 100 MLS/HR; Start 09/11/18 at 13:00 Lorazepam (Ativan) 1 mg Q4H PRN IV Aggitation Last administered on 09/11/18 22:35; Admin Dose 1 MG; Start 09/11/18 at 21:30 Levetiracetam 250 mg/Dextrose 102.5 ml @ 410 mls/hr Q12 IVPB Last administered on 09/12/18 09:48; Admin Dose 410 MLS/HR; Start 09/11/18 at 21:30 Allergies: Coded Allergies: erythromycin base (Verified Allergy, Unknown, 09/09/18) vancomycin (Verified Allergy, Unknown, 09/09/18) Social History Alcohol Use: none Smoking Status: Never smoker Drug Use: none Exam/Review of Systems Exam Vitals Vital Signs Date Temp Pulse Resp B/P (MAP) Pulse Ox O2 O2 Flow FiO2 Time Delivery Rate 09/12/18 150 09:28 09/12/18 20 93 21 08:37 09/12/18 98.8 147/86 Room Air 07:42 (106) 09/11/18 2.0 20:00 Intake and Output 09/11/18 09/11/18 09/12/18 1515:00 23:00 07:00 IntakeIntake Total 380 ml 520 ml OutputOutput Total 100 ml BalanceBalance 380 ml 420 ml Exam PHYSICAL EXAMINATION: GENERAL: Conically ill-appearing male, alert nonverbal. SKIN: No lesions, g-tube in place. EYES: Pupils equal reactive to light and accommodation, no discharge. EARS/NOSE AND THROAT: Ears normal, nose normal NECK: Supple, no masses CHEST: Inspection within normal limits. CARDIOVASCULAR: Heart: Regular rate and rhythm,, tachycardia RESPIRATORY: Coarse breath sounds GASTROINTESTINAL AND LIVER: Abdomen: Soft, non tenderness, non-distended, no hernias, no masses, G-tube in place, no organomegaly, no ascites, no guarding, no rebound tenderness, normoactive bowel sounds. Rectal: Deferred. EXTREMITIES: Atrophy, contracted Results Result Diagram: 09/12/1862609/12/18626 Results 24hrs Laboratory Tests Test 09/12/18 06:27 White Blood Count 7.3 # Red Blood Count 4.87 Hemoglobin 14.8 Hematocrit 44.6 Mean Corpuscular Volume 91.6 Mean Corpuscular Hemoglobin 30.4 Mean Corpuscular Hemoglobin Concent 33.2 Red Cell Distribution Width 12.1 Platelet Count 196 Mean Platelet Volume 10.4 Immature Granulocytes % 0.300 Neutrophils % 68.7 Lymphocytes % 22.8 Monocytes % 6.3 Eosinophils % 1.6 Basophils % 0.3 Nucleated Red Blood Cells % 0.0 Immature Granulocytes # 0.020 Neutrophils # 5.0 Lymphocytes # 1.7 Monocytes # 0.5 Eosinophils # 0.1 Basophils # 0.0 Nucleated Red Blood Cells # 0.0 Sodium Level 145 H Potassium Level 4.1 Chloride Level 107 Carbon Dioxide Level 22 Anion Gap 16 H Blood Urea Nitrogen 8 Creatinine 0.50 L Est Glomerular Filtrat Rate mL/min > 60 Glucose Level 67 #L Calcium Level 9.2 Medications Medication Current Medications IV Flush (NS 3 ml) 3 ml PER PROTOCOL IV ; Start 09/09/18 at 16:00 Ondansetron HCl (Zofran Inj) 4 mg Q6H PRN IV NAUSEA/VOMITING Last administered on 09/09/18at 23:54; Admin Dose 4 MG; Start 09/09/18 at 16:00 Piperacillin Sod/ Tazobactam Sod 100 ml @ 200 mls/hr Q6 IVPB Last administered on 09/12/18at 05:53; Admin Dose 200 MLS/HR; Start 09/09/18 at 18:00 Acetaminophen (Tylenol Liquid) 650 mg Q4H PRN GTB MILD PAIN(1-3)OR ELEVATED TE MP Last administered on 09/10/18 22:53; Admin Dose 650 MG; Start 09/09/18 at 16:30 Enoxaparin Sodium (Lovenox) 40 mg DAILY SC Last administered on 09/11/18 09:02; Admin Dose 40 MG; Start 09/10/18 at 09:00 Acetaminophen (Tylenol Tab) 650 mg Q6H PRN GTB PAIN LEVEL 4-6; Start 09/09/18 at 21:00 Albuterol (Proventil 0.083% (Neb)) 2.5 mg BID RESP THERAPY NEB Last administered on 09/12/18 08:33; Admin Dose 2.5 MG; Start 09/09/18 at 21:00 Baclofen (Lioresal) 20 mg QID GTB Last administered on 09/11/18 17:08; Admin Dose 20 MG; Start 09/09/18 at 21:00 Clonazepam (Klonopin) 2 mg TID GTB Last administered on 09/11/18 14:18; Admin Dose 2 MG; Start 09/09/18 at 21:00 Famotidine (Pepcid) 20 mg BID GTB Last administered on 09/11/18 08:59; Admin Dose 20 MG; Start 09/09/18 at 21:00 Glycopyrrolate (Robinul) 1 mg TID GTB Last administered on 09/11/18 14:17; Admin Dose 1 MG; Start 09/09/18 at 22:00 Hydroxyzine HCl (Atarax) 25 mg Q8H PRN GTB ANXIETY; Start 09/09/18 at 21:00 Levetiracetam (Keppra Liquid) 250 mg BID GTB Last administered on 09/11/18 08:59; Admin Dose 250 MG; Start 09/09/18 at 21:00 Nystatin (Nystatin Cr) 1 applic BID TOP Last administered on 09/12/18 09:00; Admin Dose 1 APPLIC; Start 09/09/18 at 22:30 Ondansetron HCl (Zofran Tab) 8 mg Q6H PRN GTB NAUSEA AND/OR VOMITING; Start 09/09/18 at 21:00 Polyethylene Glycol (Miralax) 17 gm BID GTB Last administered on 09/11/18 08:59; Admin Dose 17 GM; Start 09/09/18 at 21:00 Sucralfate (Carafate Susp) 1 gm BID GTB Last administered on 09/11/18 08:59; Admin Dose 1 GM; Start 09/09/18 at 21:00 Tizanidine HCl (Zanaflex) 2 mg Q6H PRN PO SPASTICITY Last administered on 09/10/18 22:36; Admin Dose 2 MG; Start 09/09/18 at 21:00 Tizanidine HCl (Zanaflex) 8 mg HS GTB Last administered on 09/10/18 21:00; Admin Dose 8 MG; Start 09/09/18 at 22:00 Acetaminophen (Tylenol Supp) 650 mg Q6H PRN ND FEVER Last administered on 13:19; Admin Dose 650 MG; Start 09/10/18 at 13:00 Potassium Chloride 10 meq/ Sodium Chloride 1,005 ml @ 100 mls/hr Q10H3M IV Last administered on 09/11/18 23:25; Admin Dose 100 MLS/HR; Start 09/11/18 at 13:00 Lorazepam (Ativan) 1 mg Q4H PRN IV Aggitation Last administered on 09/11/18 2 2:35; Admin Dose 1 MG; Start 09/11/18 at 21:30 Levetiracetam 250 mg/Dextrose 102.5 ml @ 410 mls/hr Q12 IVPB Last administered on 09/12/18 09:48; Admin Dose 410 MLS/HR; Start 09/11/18 at 21:30 LILLY KO Sep 12, 2018 10:43
[2018-09-12] MEDS ORDERED: IOHEXOL 300MG/ML 30 ML BTL ONE (10:57)
[2018-09-12] MEDS: LORAZEPAM 2 MG INJ IV PRN ×2 (10:57→20:36)
[2018-09-12] MEDS: ENOXAPARIN 40 MG/0.4 ML SYG SC SCH (12:46)
[2018-09-12] MEDS: PANTOPRAZOLE 40 MG INJ IV SCH ×2 (12:50→21:54)
--- NOTE | 2018-09-12 13:03 | PN ---
Date/Time of Note Date/Time of Note DATE: 09/12/18 TIME: 12:59 Assessment/Plan VTE [place]axis [place] [facility] [place]: 5 [place]CD applied [place] [facility] [place] Yes Pharmacological prophylaxis: LMWH Lines/Catheters IV Catheter Type (from [facility]): Peripheral IV Urinary Cath still in place: No Assessment/Plan Assessment/Plan 1. Likely aspiration pneumonia, on zosyn, rhonchi on lungs, repeat CXR 2. Sepsis, improving, on IVF and zosyn 3. Dislodged G-tube on 09/11/2018, replaced 4. Cerebral palsy. Continue supportive care. 5. Hypernatremia, increase water G-tube flush, improving 6. DVT prophylaxis: lovenox Result Diagram: 09/12/1862609/12/18 0627 Results 24hrs Laboratory Tests Test 09/12/18 06:27 White Blood Count 7.3 # Red Blood Count 4.87 Hemoglobin 14.8 Hematocrit 44.6 Mean Corpuscular Volume 91.6 Mean Corpuscular Hemoglobin 30.4 Mean Corpuscular Hemoglobin Concent 33.2 Red Cell Distribution Width 12.1 Platelet Count 196 Mean Platelet Volume 10.4 Immature Granulocytes % 0.300 Neutrophils % 68.7 Lymphocytes % 22.8 Monocytes % 6.3 Eosinophils % 1.6 Basophils % 0.3 Nucleated Red Blood Cells % 0.0 Immature Granulocytes # 0.020 Neutrophils # 5.0 Lymphocytes # 1.7 Monocytes # 0.5 Eosinophils # 0.1 Basophils # 0.0 Nucleated Red Blood Cells # 0.0 Sodium Level 145 H Potassium Level 4.1 Chloride Level 107 Carbon Dioxide Level 22 Anion Gap 16 H Blood Urea Nitrogen 8 Creatinine 0.50 L Est Glomerular Filtrat Rate mL/min > 60 Glucose Level 67 #L Calcium Level 9.2 Subjective 24 Hr Interval Summary Free Text/Dictation dislodged G-tube this morning that is replaced per GI service Exam/Review of Systems Exam Vitals Vital Signs Date Temp Pulse Resp B/P (MAP) Pulse Ox O2 O2 Flow FiO2 Time Delivery Rate 09/12/18 112 12:01 09/12/18 Nasal 2.0 11:47 Cannula 09/12/18 98.9 23 124/96 96 11:26 (105) 09/12/18 08:37 Intake and Output 09/11/18 09/11/18 09/12/18 1515:00 23:00 07:00 IntakeIntake Total 380 ml 520 ml OutputOutput Total 100 ml BalanceBalance 380 ml 420 ml Constitutional: alert, non-verbal Psych: confusion Eyes: nl conjunctiva, EOMI, nl lids, PERRL ENMT: nl external ears & nose, nl lips & teeth, nl nasal mucosa & septum, mucosa pink and moist Respiratory: other (rhonchi bilateraly) Cardiovascular: regular rate and rhythm, nl pulses Gastrointestinal: soft, nl liver, spleen Extremities: normal pulses Neurological: [employer] II-XII intact, confused Results Results 24hrs Laboratory Tests Test 09/12/18 06:27 White Blood Count 7.3 # Red Blood Count 4.87 Hemoglobin 14.8 Hematocrit 44.6 Mean Corpuscular Volume 91.6 Mean Corpuscular Hemoglobin 30.4 Mean Corpuscular Hemoglobin Concent 33.2 Red Cell Distribution Width 12.1 Platelet Count 196 Mean Platelet Volume 10.4 Immature Granulocytes % 0.300 Neutrophils % 68.7 Lymphocytes % 22.8 Monocytes % 6.3 Eosinophils % 1.6 Basophils % 0.3 Nucleated Red Blood Cells % 0.0 Immature Granulocytes # 0.020 Neutrophils # 5.0 Lymphocytes # 1.7 Monocytes # 0.5 Eosinophils # 0.1 Basophils # 0.0 Nucleated Red Blood Cells # 0.0 Sodium Level 145 H Potassium Level 4.1 Chloride Level 107 Carbon Dioxide Level 22 Anion Gap 16 H Blood Urea Nitrogen 8 Creatinine 0.50 L Est Glomerular Filtrat Rate mL/min > 60 Glucose Level 67 #L Calcium Level 9.2 Medications Medication Current Medications IV Flush (NS 3 ml) 3 ml PER PROTOCOL IV ; Start 09/09/18 at 16:00 Ondansetron HCl (Zofran Inj) 4 mg Q6H PRN IV NAUSEA/VOMITING Last administered on 09/09/18at 23:54; Admin Dose 4 MG; Start 09/09/18 at 16:00 Piperacillin Sod/ Tazobactam Sod 100 ml @ 200 mls/hr Q6 IVPB Last administered on 09/12/18at 05:53; Admin Dose 200 MLS/HR; Start 09/09/18 at 18:00 Acetaminophen (Tylenol Liquid) 650 mg Q4H PRN GTB MILD PAIN(1-3)OR ELEVATED TEMP Last administered on 09/10/18at 22:53; Admin Dose 650 MG; Start 09/09/18 at 16:30 Enoxaparin Sodium (Lovenox) 40 mg DAILY SC Last administered on 09/12/18 12:46; Admin Dose 40 MG; Start 09/10/18 at 09:00 Acetaminophen (Tylenol Tab) 650 mg Q6H PRN GTB PAIN LEVEL 4-6; Start 09/09/18 at 21:00 Albuterol (Proventil 0.083% (Neb)) 2.5 mg BID RESP THERAPY NEB Last administered on 09/12/18 08:33; Admin Dose 2.5 MG; Start 09/09/18 at 21:00 Baclofen (Lioresal) 20 mg QID GTB Last administered on 09/11/18 17:08; Admin Dose 20 MG; Start 09/09/18 at 21:00 Clonazepam (Klonopin) 2 mg TID GTB Last administered on 09/11/18 14:18; Admin Dose 2 MG; Start 09/09/18 at 21:00 Glycopyrrolate (Robinul) 1 mg TID GTB Last administered on 09/11/18 14:17; Admin Dose 1 MG; Start 09/09/18 at 22:00 Hydroxyzine HCl (Atarax) 25 mg Q8H PRN GTB ANXIETY; Start 09/09/18 at 21:00 Levetiracetam (Keppra Liquid) 250 mg BID GTB Last administered on 09/11/18 08:59; Admin Dose 250 MG; Start 09/09/18 at 21:00; Status Hold Nystatin (Nystatin Cr) 1 applic BID TOP Last administered on 09/12/18 09:00; Admin Dose 1 APPLIC; Start 09/09/18 at 22:30 Ondansetron HCl (Zofran Tab) 8 mg Q6H PRN GTB NAUSEA AND/OR VOMITING; Start 09/09/18 at 21:00 Polyethylene Glycol (Miralax) 17 gm BID GTB Last administered on 09/11/18 08:59; Admin Dose 17 GM; Start 09/09/18 at 21:00 Sucralfate (Carafate Susp) 1 gm BID GTB Last administered on 09/11/18 08:59; Admin Dose 1 GM; Start 09/09/18 at 21:00 Tizanidine HCl (Zanaflex) 2 mg Q6H PRN PO SPASTICITY Last administered on 09/10/18 22:36; Admin Dose 2 MG; Start 09/09/18 at 21:00 Tizanidine HCl (Zanaflex) 8 mg HS GTB Last administered on 09/10/18 21:00; Admin Dose 8 MG; Start 09/09/18 at 22:00 Acetaminophen (Tylenol Supp) 650 mg Q6H PRN [place] FEVER Last administered on 09/10/18 13:19; Admin Dose 650 MG; Start 09/10/18 at 13:00 Potassium Chloride 10 meq/ Sodium Chloride 1,005 ml @ 100 mls/hr Q10H3M IV Last administered on 09/11/18 23:25; Admin Dose 100 MLS/HR; Start 09/11/18 at 13:00 Lorazepam (Ativan) 1 mg Q4H PRN IV Aggitation Last administered on 09/12/18 10:57; Admin Dose 1 MG; Start 09/11/18 at 21:30 Levetiracetam 250 mg/Dextrose 102.5 ml @ 410 mls/hr Q12 IVPB Last administered on 09/12/18 09:48; Admin Dose 410 MLS/HR; Start 09/11/18 at 21:30 Pantoprazole (Protonix Iv) 40 mg BID@06,18 IV Last administered on 09/12/18 12:50; Admin Dose 40 MG; Start 09/12/18 at 11:30 JOSE PALMA MD Sep 12, 2018 13:03
[2018-09-12] MEDS: TIZANIDINE 4 MG TAB GTB SCH (20:40)
[2018-09-13] VITALS (14 sets, daily range): BP systolic 99–141; BP diastolic 54–89; PULSE 75–119; RESP 16–24
[2018-09-13] MEDS: PIPER-TAZO 3.375 GM IV (PMX) 100 ML IVPB SCH ×4 (00:02→17:14)
[2018-09-13] MEDS: LORAZEPAM 2 MG INJ IV PRN (00:37)
[2018-09-13] MEDS: PANTOPRAZOLE 40 MG INJ IV SCH (05:17)
[2018-09-13] MEDS: POTASSIUM CHLORIDE 10 MEQ in SOD CHLORIDE 0.45% 1,000 ML IV SCH ×2 (05:17→15:21)
[2018-09-13] MEDS: GLYCOPYRROLATE 1 MG TAB GTB SCH ×3 (08:34→20:30)
[2018-09-13] MEDS: SUCRALFATE (100 MG/ML) 10ML CUP GTB SCH ×2 (08:34→20:30)
[2018-09-13] MEDS: BACLOFEN 10 MG TAB GTB SCH ×4 (08:34→20:30)
[2018-09-13] MEDS: clonAZEPAM 0.5 MG TAB GTB SCH ×3 (08:35→20:30)
[2018-09-13] MEDS: NYSTATIN 15 GM CR TOP SCH ×2 (08:35→20:30)
[2018-09-13] MEDS: POLYETHYLENE GLYCOL 17 GM PACKET GTB SCH ×2 (08:35→20:30)
[2018-09-13] MEDS: LEVETIRACETAM IV 250 MG in DEXTROSE 5% 100 ML IVPB SCH ×2 (08:44→22:24)
[2018-09-13] MEDS: ENOXAPARIN 40 MG/0.4 ML SYG SC SCH (09:13)
[2018-09-13] MEDS: ALBUTEROL 0.083% (NEB) 2.5 MG/3 ML AMP NEB SCH ×2 (10:10→20:49)
--- NOTE | 2018-09-13 13:49 | PN ---
Date/Time of Note Date/Time of Note DATE: 09/13/18 TIME: 13:43 Assessment/Plan VTE Prophylaxis Risk score (from Ns)>0 risk: 4 SCD applied (from Ns): Yes Pharmacological prophylaxis: heparin Lines/Catheters IV Catheter Type (from Nrs): Peripheral IV Urinary Cath still in place: No Assessment/Plan Assessment/Plan Assessment: Dislodged g-tube- replaced Sepsis- improving -Questionable aspiration PNA- continue Zosyn Dysphagia- with g-tube Cerebral palsy Chronically bedridden with contractures Plan: Monitor labs Pt on ABX Further recommendations based on clinical course Patient seen in collaboration with Dr. Olson Subjective: G-tube placement was confirmed with KUB. Patient is tolerating tube feeding well, with minimal residuals. With no further recommendations GI will sign off and will be available to reconsult upon request. PHYSICAL EXAMINATION: GENERAL: Conically ill-appearing male, alert nonverbal. SKIN: No lesions, g-tube in place. EYES: Pupils equal reactive to light and accommodation, no discharge. EARS/NOSE AND THROAT: Ears normal, nose normal NECK: Supple, no masses CHEST: Inspection within normal limits. CARDIOVASCULAR: Heart: Regular rate and rhythm,, tachycardia RESPIRATORY: Coarse breath sounds GASTROINTESTINAL AND LIVER: Abdomen: Soft, non tenderness, non-distended, no hernias, no masses, G-tube in place, no organomegaly, no ascites, no guarding, no rebound tenderness, normoactive bowel sounds. Rectal: Deferred. EXTREMITIES: Atrophy, contracted Result Diagram: 09/13/18 0641 09/13/18 0641 Results 24hrs Laboratory Tests Test 09/13/18 06:41 White Blood Count 8.9 # Red Blood Count 4.88 Hemoglobin 14.7 Hematocrit 43.9 Mean Corpuscular Volume 90.0 Mean Corpuscular Hemoglobin 30.1 Mean Corpuscular Hemoglobin Concent 33.5 Red Cell Distribution Width 11.9 Platelet Count 265 # Mean Platelet Volume 10.0 Immature Granulocytes % 0.300 Neutrophils % 61.6 Lymphocytes % 27.7 Monocytes % 7.4 Eosinophils % 2.7 Basophils % 0.3 Nucleated Red Blood Cells % 0.0 Immature Granulocytes # 0.030 Neutrophils # 5.5 Lymphocytes # 2.5 Monocytes # 0.7 Eosinophils # 0.2 Basophils # 0.0 Nucleated Red Blood Cells # 0.0 Sodium Level 145 H Potassium Level 4.4 Chloride Level 103 Carbon Dioxide Level 28 Anion Gap 14 H Blood Urea Nitrogen 6 L Creatinine 0.42 L Est Glomerular Filtrat Rate mL/min > 60 Glucose Level 102 Calcium Level 9.5 Total Bilirubin 1.4 H Direct Bilirubin 0.00 Indirect Bilirubin 1.4 H Aspartate Amino Transf (AST/SGOT) 70 H Alanine Aminotransferase (ALT/SGPT) 42 Alkaline Phosphatase 88 Total Protein 7.2 Albumin 4.6 Globulin 2.60 Albumin/Globulin Ratio 1.76 CC: SKY QUEVEDO MD ; Exam/Review of Systems Exam Vitals Vital Signs Date Temp Pulse Resp B/P (MAP) Pulse Ox O2 O2 Flow FiO2 Time Delivery Rate 09/13/18 98.2 75 18 139/70 97 11:32 (93) 09/13/18 Nasal 2.0 10:12 Cannula 09/12/18 08:37 Intake and Output 09/12/18 09/12/18 09/13/18 1515:00 23:00 07:00 IntakeIntake Total 250 ml 800 ml 700 ml BalanceBalance 250 ml 800 ml 700 ml Results Results 24hrs Laboratory Tests Test 09/13/18 06:41 White Blood Count 8.9 # Red Blood Count 4.88 Hemoglobin 14.7 Hematocrit 43.9 Mean Corpuscular Volume 90.0 Mean Corpuscular Hemoglobin 30.1 Mean Corpuscular Hemoglobin Concent 33.5 Red Cell Distribution Width 11.9 Platelet Count 265 # Mean Platelet Volume 10.0 Immature Granulocytes % 0.300 Neutrophils % 61.6 Lymphocytes % 27.7 Monocytes % 7.4 Eosinophils % 2.7 Basophils % 0.3 Nucleated Red Blood Cells % 0.0 Immature Granulocytes # 0.030 Neutrophils # 5.5 Lymphocytes # 2.5 Monocytes # 0.7 Eosinophils # 0.2 Basophils # 0.0 Nucleated Red Blood Cells # 0.0 Sodium Level 145 H Potassium Level 4.4 Chloride Level 103 Carbon Dioxide Level 28 Anion Gap 14 H Blood Urea Nitrogen 6 L Creatinine 0.42 L Est Glomerular Filtrat Rate mL/min > 60 Glucose Level 102 Calcium Level 9.5 Total Bilirubin 1.4 H Direct Bilirubin 0.00 Indirect Bilirubin 1.4 H Aspartate Amino Transf (AST/SGOT) 70 H Alanine Aminotransferase (ALT/SGPT) 42 Alkaline Phosphatase 88 Total Protein 7.2 Albumin 4.6 Globulin 2.60 Albumin/Globulin Ratio 1.76 Medications Medication Current Medications IV Flush (NS 3 ml) 3 ml PER PROTOCOL IV ; Start 09/09/18 at 16:00 Ondansetron HCl (Zofran Inj) 4 mg Q6H PRN IV NAUSEA/VOMITING Last administered on 09/09/18 23:54; Admin Dose 4 MG; Start 09/09/18 at 16:00 Piperacillin Sod/ Tazobactam Sod 100 ml @ 200 mls/hr Q6 IVPB Last administered on 09/13/18 12:30; Admin Dose 200 MLS/HR; Start 09/09/18 at 18:00 Acetaminophen (Tylenol Liquid) 650 mg Q4H PRN GTB MILD PAIN(1-3)OR ELEVATED TEMP Last administered on 09/10/18 22:53; Admin Dose 650 MG; Start 09/09/18 at 16:30 Enoxaparin Sodium (Lovenox) 40 mg DAILY SC Last administered on 09/13/18 09:13; Admin Dose 40 MG; Start 09/10/18 at 09:00 Acetaminophen (Tylenol Tab) 650 mg Q6H PRN GTB PAIN LEVEL 4-6; Start 09/09/18 at 21:00 Albuterol (Proventil 0.083% (Neb)) 2.5 mg BID RESP THERAPY NEB Last administered on 09/13/18 10:10; Admin Dose 2.5 MG; Start 09/09/18 at 21:00 Baclofen (Lioresal) 20 mg QID GTB Last administered on 09/13/18 12:36; Admin Dose 20 MG; Start 09/09/18 at 21:00 Clonazepam (Klonopin) 2 mg TID GTB Last administered on 09/13/18 12:38; Admin Dose 2 MG; Start 09/09/18 at 21:00 Glycopyrrolate (Robinul) 1 mg TID GTB Last administered on 09/13/18 12:39; Admin Dose 1 MG; Start 09/09/18 at 22:00 Hydroxyzine HCl (Atarax) 25 mg Q8H PRN GTB ANXIETY; Start 09/09/18 at 21:00 Levetiracetam (Keppra Liquid) 250 mg BID GTB Last administered on 09/11/18 08:59; Admin Dose 250 MG; Start 09/09/18 at 21:00; Status Hold Nystatin (Nystatin Cr) 1 applic BID TOP Last administered on 09/13/18 08:35; Admin Dose 1 APPLIC; Start 09/09/18 at 22:30 Ondansetron HCl (Zofran Tab) 8 mg Q6H PRN GTB NAUSEA AND/OR VOMITING; Start 09/09/18 at 21:00 Polyethylene Glycol (Miralax) 17 gm BID GTB Last administered on 09/13/18 08:35; Admin Dose 17 GM; Start 09/09/18 at 21:00 Sucralfate (Carafate Susp) 1 gm BID GTB Last administered on 09/13/18 08:34; Admin Dose 1 GM; Start 09/09/18 at 21:00 Tizanidine HCl (Zanaflex) 2 mg Q6H PRN PO SPASTICITY Last administered on 09/10/18 22:36; Admin Dose 2 MG; Start 09/09/18 at 21:00 Tizanidine HCl (Zanaflex) 8 mg HS GTB Last administered on 09/12/18 20:40; Admin Dose 8 MG; Start 09/09/18 at 22:00 Acetaminophen (Tylenol Supp) 650 mg Q6H PRN [place] FEVER Last administered on 09/10/18 13:19; Admin Dose 650 MG; Start 09/10/18 at 13:00 Potassium Chloride 10 meq/ Sodium Chloride 1,005 ml @ 100 mls/hr Q10H3M IV Last administered on 09/13/18 05:17; Admin Dose 100 MLS/HR; Start 09/11/18 at 13:00 Lorazepam (Ativan) 1 mg Q4H PRN IV Aggitation Last administered on 09/13/18 00:37; Admin Dose 1 MG; Start 09/11/18 at 21:30 Levetiracetam 250 mg/Dextrose 102.5 ml @ 410 mls/hr Q12 IVPB Last administered on 09/13/18 08:44; Admin Dose 410 MLS/HR; Start 09/11/18 at 21:30 Pantoprazole (Protonix Iv) 40 mg BID@06,18 IV Last administered on 09/13/18 05:17; Admin Dose 40 MG; Start 09/12/18 at 11:30 LEO SCHREIBER NP 22, 2019 13:49
--- NOTE | 2018-09-13 16:24 | PN ---
Date/Time of Note Date/Time of Note DATE: 09/13/18 TIME: 16:22 Assessment/Plan VTE Prophylaxis Risk score (from Ns)>0 risk: 4 SCD applied (from [facility] [place]): Yes Pharmacological prophylaxis: LMWH Lines/Catheters IV Catheter Type (from [facility]): Peripheral IV Urinary Cath still in place: No Assessment/Plan Assessment/Plan 1. Recurrent aspiration pneumonia, on zosyn 2. Sepsis, improving, on IVF and zosyn 3. Dislodged G-tube on 09/11/2018, replaced 4. Cerebral palsy. Continue supportive care. 5. Hypernatremia, increase water G-tube flush, improving 6. DVT prophylaxis: lovenox Result Diagram: 09/13/18 0641 09/13/18 0641 Results 24hrs Laboratory Tests Test 09/13/18 06:41 White Blood Count 8.9 # Red Blood Count 4.88 Hemoglobin 14.7 Hematocrit 43.9 Mean Corpuscular Volume 90.0 Mean Corpuscular Hemoglobin 30.1 Mean Corpuscular Hemoglobin Concent 33.5 Red Cell Distribution Width 11.9 Platelet Count 265 # Mean Platelet Volume 10.0 Immature Granulocytes % 0.300 Neutrophils % 61.6 Lymphocytes % 27.7 Monocytes % 7.4 Eosinophils % 2.7 Basophils % 0.3 Nucleated Red Blood Cells % 0.0 Immature Granulocytes # 0.030 Neutrophils # 5.5 Lymphocytes # 2.5 Monocytes # 0.7 Eosinophils # 0.2 Basophils # 0.0 Nucleated Red Blood Cells # 0.0 Sodium Level 145 H Potassium Level 4.4 Chloride Level 103 Carbon Dioxide Level 28 Anion Gap 14 H Blood Urea Nitrogen 6 L Creatinine 0.42 L Est Glomerular Filtrat Rate mL/min > 60 Glucose Level 102 Calcium Level 9.5 Total Bilirubin 1.4 H Direct Bilirubin 0.00 Indirect Bilirubin 1.4 H Aspartate Amino Transf (AST/SGOT) 70 H Alanine Aminotransferase (ALT/SGPT) 42 Alkaline Phosphatase 88 Total Protein 7.2 Albumin 4.6 Globulin 2.60 Albumin/Globulin Ratio 1.76 Subjective 24 Hr Interval Summary Free Text/Dictation no distress today Exam/Review of Systems Exam Vitals Vital Signs Date Temp Pulse Resp B/P (MAP) Pulse Ox O2 O2 Flow FiO2 Time Delivery Rate 09/13/18 106 15:44 09/13/18 98.5 16 137/89 98 15:28 (105) 09/13/18 Nasal 2.0 10:12 Cannula 09/12/18 08:37 Intake and Output 09/12/18 09/12/18 09/13/18 1515:00 23:00 07:00 IntakeIntake Total 250 ml 800 ml 700 ml BalanceBalance 250 ml 800 ml 700 ml Constitutional: alert, non-verbal Head: normocephalic, atraumatic Eyes: nl conjunctiva, EOMI, nl lids, PERRL ENMT: nl external ears & nose, nl lips & teeth, nl nasal mucosa & septum Neck: supple, non-tender Respiratory: clear to auscultation Cardiovascular: regular rate and rhythm, nl pulses; No bruits, No diastolic murmur, No edema, No gallop, No irregular rhythm, No jugular venous distention (JVD), No murmurs/extra sounds, No rub, No systolic murmur, No S3, No S4, No other Gastrointestinal: soft, nl liver, spleen Extremities: normal pulses; No calf tenderness, No cyanosis, No clubbing, No edema, No pitting pedal edema, No palpable cord Neurological: 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 II-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, confused Results Results 24hrs Laboratory Tests Test 09/13/18 06:41 White Blood Count 8.9 # Red Blood Count 4.88 Hemoglobin 14.7 Hematocrit 43.9 Mean Corpuscular Volume 90.0 Mean Corpuscular Hemoglobin 30.1 Mean Corpuscular Hemoglobin Concent 33.5 Red Cell Distribution Width 11.9 Platelet Count 265 # Mean Platelet Volume 10.0 Immature Granulocytes % 0.300 Neutrophils % 61.6 Lymphocytes % 27.7 Monocytes % 7.4 Eosinophils % 2.7 Basophils % 0.3 Nucleated Red Blood Cells % 0.0 Immature Granulocytes # 0.030 Neutrophils # 5.5 Lymphocytes # 2.5 Monocytes # 0.7 Eosinophils # 0.2 Basophils # 0.0 Nucleated Red Blood Cells # 0.0 Sodium Level 145 H Potassium Level 4.4 Chloride Level 103 Carbon Dioxide Level 28 Anion Gap 14 H Blood Urea Nitrogen 6 L Creatinine 0.42 L Est Glomerular Filtrat Rate mL/min > 60 Glucose Level 102 Calcium Level 9.5 Total Bilirubin 1.4 H Direct Bilirubin 0.00 Indirect Bilirubin 1.4 H Aspartate Amino Transf (AST/SGOT) 70 H Alanine Aminotransferase (ALT/SGPT) 42 Alkaline Phosphatase 88 Total Protein 7.2 Albumin 4.6 Globulin 2.60 Albumin/Globulin Ratio 1.76 Medications Medication Current Medications IV Flush (NS 3 ml) 3 ml PER PROTOCOL IV ; Start 09/09/18 at 16:00 Ondansetron HCl (Zofran Inj) 4 mg Q6H PRN IV NAUSEA/VOMITING Last administered on 09/09/18 23:54; Admin Dose 4 MG; Start 09/09/18 at 16:00 Piperacillin Sod/ Tazobactam Sod 100 ml @ 200 mls/hr Q6 IVPB Last administered on 09/13/18 12:30; Admin Dose 200 MLS/HR; Start 09/09/18 at 18:00 Acetaminophen (Tylenol Liquid) 650 mg Q4H PRN GTB MILD PAIN(1-3)OR ELEVATED TEMP Last administered on 09/10/18 22:53; Admin Dose 650 MG; Start 09/09/18 at 16:30 Enoxaparin Sodium (Lovenox) 40 mg DAILY SC Last administered on 09/13/18 09:13; Admin Dose 40 MG; Start 09/10/18 at 09:00 Acetaminophen (Tylenol Tab) 650 mg Q6H PRN GTB PAIN LEVEL 4-6; Start 09/09/18 at 21:00 Albuterol (Proventil 0.083% (Neb)) 2.5 mg BID RESP THERAPY NEB Last administered on 09/13/18 10:10; Admin Dose 2.5 MG; Start 09/09/18 at 21:00 Baclofen (Lioresal) 20 mg QID GTB Last administered on 09/13/18 12:36; Admin Dose 20 MG; Start 09/09/18 at 21:00 Clonazepam (Klonopin) 2 mg TID GTB Last administered on 09/13/18 12:38; Admin Dose 2 MG; Start 09/09/18 at 21:00 Glycopyrrolate (Robinul) 1 mg TID GTB Last administered on 09/13/18 12:39; Admin Dose 1 MG; Start 09/09/18 at 22:00 Hydroxyzine HCl (Atarax) 25 mg Q8H PRN GTB ANXIETY; Start 09/09/18 at 21:00 Levetiracetam (Keppra Liquid) 250 mg BID GTB Last administered on 09/11/18 08:59; Admin Dose 250 MG; Start 09/09/18 at 21:00; Status Hold Nystatin (Nystatin Cr) 1 applic BID TOP Last administered on 09/13/18 08:35; Admin Dose 1 APPLIC; Start 09/09/18 at 22:30 Ondansetron HCl (Zofran Tab) 8 mg Q6H PRN GTB NAUSEA AND/OR VOMITING; Start 09/09/18 at 21:00 Polyethylene Glycol (Miralax) 17 gm BID GTB Last administered on 09/13/18 08:35; Admin Dose 17 GM; Start 09/09/18 at 21:00 Sucralfate (Carafate Susp) 1 gm BID GTB Last administered on 09/13/18 08:34; Admin Dose 1 GM; Start 09/09/18 at 21:00 Tizanidine HCl (Zanaflex) 2 mg Q6H PRN PO SPASTICITY Last administered on 09/10/18 22:36; Admin Dose 2 MG; Start 09/09/18 at 21:00 Tizanidine HCl (Zanaflex) 8 mg HS GTB Last administered on 09/12/18 20:40; Admin Dose 8 MG; Start 09/09/18 at 22:00 Acetaminophen (Tylenol Supp) 650 mg Q6H PRN [place] FEVER Last administered on 09/10/18 13:19; Admin Dose 650 MG; Start 09/10/18 at 13:00 Potassium Chloride 10 meq/ Sodium Chloride 1,005 ml @ 100 mls/hr Q10H3M IV Last administered on 09/13/18 15:21; Admin Dose 100 MLS/HR; Start 09/11/18 at 13:00 Lorazepam (Ativan) 1 mg Q4H PRN IV Aggitation Last administered on 09/13/18 00:37; Admin Dose 1 MG; Start 09/11/18 at 21:30 Levetiracetam 250 mg/Dextrose 102.5 ml @ 410 mls/hr Q12 IVPB Last administered on 09/13/18 08:44; Admin Dose 410 MLS/HR; Start 09/11/18 at 21:30 Pantoprazole (Protonix Iv) 40 mg BID@06,18 IV Last administered on 3/22/19at 05:17; Admin Dose 40 MG; Start 09/12/18 at 11:30 JOSE PALMA MD Sep 13, 2018 16:24
[2018-09-13] MEDS: LANSOPRAZOLE 30 MG CAP GTB SCH (17:10)
[2018-09-13] MEDS: ACETAMINOPHEN 650MG/20.3ML CUP GTB PRN (18:24)
[2018-09-13] MEDS: TIZANIDINE 4 MG TAB GTB SCH (20:30)
[2018-09-14] VITALS (12 sets, daily range): BP systolic 84–136; BP diastolic 42–71; PULSE 66–125; RESP 16–24
[2018-09-14] MEDS: PIPER-TAZO 3.375 GM IV (PMX) 100 ML IVPB SCH ×5 (00:24→23:08)
[2018-09-14] MEDS: LANSOPRAZOLE 30 MG CAP GTB SCH ×2 (05:25→17:04)
[2018-09-14] MEDS: ALBUTEROL 0.083% (NEB) 2.5 MG/3 ML AMP NEB SCH (08:10)
[2018-09-14] MEDS: NYSTATIN 15 GM CR TOP SCH ×2 (09:00→21:42)
[2018-09-14] MEDS: clonAZEPAM 0.5 MG TAB GTB SCH ×3 (09:14→21:42)
[2018-09-14] MEDS: SUCRALFATE (100 MG/ML) 10ML CUP GTB SCH ×2 (09:14→21:41)
[2018-09-14] MEDS: POLYETHYLENE GLYCOL 17 GM PACKET GTB SCH ×2 (09:15→21:41)
[2018-09-14] MEDS: BACLOFEN 10 MG TAB GTB SCH ×4 (09:15→21:41)
[2018-09-14] MEDS: GLYCOPYRROLATE 1 MG TAB GTB SCH ×3 (09:15→23:08)
[2018-09-14] MEDS: ENOXAPARIN 40 MG/0.4 ML SYG SC SCH (09:25)
[2018-09-14] MEDS: LEVETIRACETAM IV 250 MG in DEXTROSE 5% 100 ML IVPB SCH ×2 (09:45→21:27)
[2018-09-14] MEDS: LEVALBUTEROL (NEB) 0.63 MG/3 ML AMP HHN SCH ×3 (12:24→21:19)
[2018-09-14] MEDS: ACETAMINOPHEN 650MG/20.3ML CUP GTB PRN (15:40)
--- NOTE | 2018-09-14 16:08 | PN ---
Date/Time of Note Date/Time of Note DATE: 09/14/18 TIME: 16:06 Assessment/Plan VTE Prophylaxis Risk score (from Nsg)>0 risk: 4 SCD applied (from Nsg): Yes Pharmacological prophylaxis: heparin Lines/Catheters IV Catheter Type (from Nrsg): Peripheral IV Urinary Cath still in place: No Assessment/Plan Hospital Course 23 yo male with CP here with pneumoina - Appears back to baseline - Complete abx course per ID - Hypernatremia -> increase FW flushes - Discharge planning Result Diagram: 09/13/18 0641 09/14/18 1125 Results 24hrs Laboratory Tests Test 09/14/18 11:25 Sodium Level 149 H Potassium Level 4.0 Chloride Level 104 Carbon Dioxide Level 34 H Anion Gap 11 Blood Urea Nitrogen 7 Creatinine 0.47 L Est Glomerular Filtrat Rate mL/min > 60 Glucose Level 124 Calcium Level 9.8 Subjective 24 Hr Interval Summary Free Text/Dictation Appears comfortable Caregiver at bedside, feels he is at his baseline Exam/Review of Systems Exam Vitals Vital Signs Date Temp Pulse Resp B/P (MAP) Pulse Ox O2 O2 Flow FiO2 Time Delivery Rate 09/14/18 98.7 70 18 106/49 100 Nasal 15:30 (68) Cannula 09/14/18 2.0 12:25 09/12/18 21 08:37 Intake and Output 09/13/18 09/13/18 09/14/18 1515:00 23:00 07:00 IntakeIntake Total 100 ml 200 ml 200 ml OutputOutput Total 500 ml BalanceBalance 100 ml -300 ml 200 ml Exam Alert Breathign comfortably Lungs clear RRR Contracted limbs Results Results 24hrs Laboratory Tests Test 09/14/18 11:25 Sodium Level 149 H Potassium Level 4.0 Chloride Level 104 Carbon Dioxide Level 34 H Anion Gap 11 Blood Urea Nitrogen 7 Creatinine 0.47 L Est Glomerular Filtrat Rate mL/min > 60 Glucose Level 124 Calcium Level 9.8 Medications Medication Current Medications IV Flush (NS 3 ml) 3 ml PER PROTOCOL IV ; Start 09/09/18 at 16:00 Ondansetron HCl (Zofran Inj) 4 mg Q6H PRN IV NAUSEA/VOMITING Last administered on 09/09/18at 23:54; Admin Dose 4 MG; Start 09/09/18 at 16:00 Piperacillin Sod/ Tazobactam Sod 100 ml @ 200 mls/hr Q6 IVPB Last administered on 09/14/18 12:48; Admin Dose 200 MLS/HR; Start 09/09/18 at 18:00 Acetaminophen (Tylenol Liquid) 650 mg Q4H PRN GTB MILD PAIN(1-3)OR ELEVATED TEMP Last administered on 09/14/18 15:40; Admin Dose 650 MG; Start 09/09/18 at 16:30 Enoxaparin Sodium (Lovenox) 40 mg DAILY SC Last administered on 09/14/18 09:2 5; Admin Dose 40 MG; Start 09/10/18 at 09:00 Acetaminophen (Tylenol Tab) 650 mg Q6H PRN GTB PAIN LEVEL 4-6; Start 09/09/18 at 21:00 Albuterol (Proventil 0.083% (Neb)) 2.5 mg BID RESP THERAPY NEB Last administered on 09/14/18 08:10; Admin Dose 2.5 MG; Start 09/09/18 at 21:00 Baclofen (Lioresal) 20 mg QID GTB Last administered on 09/14/18 12:47; Admin Dose 20 MG; Start 09/09/18 at 21:00 Clonazepam (Klonopin) 2 mg TID GTB Last administered on 09/14/18 12:47; Admin Dose 2 MG; Start 09/09/18 at 21:00 Glycopyrrolate (Robinul) 1 mg TID GTB Last administered on 09/14/18 12:47; Admin Dose 1 MG; Start 09/09/18 at 22:00 Hydroxyzine HCl (Atarax) 25 mg Q8H PRN GTB ANXIETY; Start 09/09/18 at 21:00 Levetiracetam (Keppra Liquid) 250 mg BID GTB Last administered on 09/11/18 08:59; Admin Dose 250 MG; Start 09/09/18 at 21:00; Status Hold Nystatin (Nystatin Cr) 1 applic BID TOP Last administered on 09/13/18 20:30; Admin Dose 1 APPLIC; Start 09/09/18 at 22:30 Ondansetron HCl (Zofran Tab) 8 mg Q6H PRN GTB NAUSEA AND/OR VOMITING; Start 09/09/18 at 21:00 Polyethylene Glycol (Miralax) 17 gm BID GTB Last administered on 09/14/18 09:15; Admin Dose 17 GM; Start 09/09/18 at 21:00 Sucralfate (Carafate Susp) 1 gm BID GTB Last administered on 09/14/18 09:14; Admin Dose 1 GM; Start 09/09/18 at 21:00 Tizanidine HCl (Zanaflex) 2 mg Q6H PRN PO SPASTICITY Last administered on 09/10/18 22:36; Admin Dose 2 MG; Start 09/09/18 at 21:00 Tizanidine HCl (Zanaflex) 8 mg HS GTB Last administered on 09/13/18 20:30; Admin Dose 8 MG; Start 09/09/18 at 22:00 Acetaminophen (Tylenol Supp) 650 mg Q6H PRN SC FEVER Last administered on 09/10/18 13:19; Admin Dose 650 MG; Start 09/10/18 at 13:00 Lorazepam (Ativan) 1 mg Q4H PRN IV Aggitation Last administered on 09/13/18 00:37; Admin Dose 1 MG; Start 09/11/18 at 21:30 Levetiracetam 250 mg/Dextrose 102.5 ml @ 410 mls/hr Q12 IVPB Last administered on 09/14/18 09:45; Admin Dose 410 MLS/HR; Start 09/11/18 at 21:30 Lansoprazole (Prevacid) 30 mg 0600,1800 GTB Last administered on 09/14/18 05:25; Admin Dose 30 MG; Start 09/13/18 at 18:00 Levalbuterol (Xopenex Neb) 0.63 mg Q4H RESP THERAPY HHN Last administered on 09/14/18 12:24; Admin Dose 0.63 MG; Start 09/14/18 at 13:00 IZABELLA PEOPLES MD Sep 14, 2018 16:08
[2018-09-14] MEDS: TIZANIDINE 4 MG TAB GTB SCH (21:41)
[2018-09-15] VITALS (10 sets, daily range): BP systolic 88–163; BP diastolic 44–89; PULSE 51–108; RESP 18–22
[2018-09-15] MEDS: LEVALBUTEROL (NEB) 0.63 MG/3 ML AMP HHN SCH ×4 (00:35→12:44)
[2018-09-15] MEDS ORDERED: SOD CHLORIDE 0.9% 500 ML IV ONE (01:00)
[2018-09-15] MEDS: ACETAMINOPHEN 650MG/20.3ML CUP GTB PRN ×2 (01:57→12:26)
[2018-09-15] MEDS: LORAZEPAM 2 MG INJ IV PRN (01:57)
[2018-09-15] MEDS: LANSOPRAZOLE 30 MG CAP GTB SCH (06:29)
[2018-09-15] MEDS: PIPER-TAZO 3.375 GM IV (PMX) 100 ML IVPB SCH ×2 (06:29→12:27)
[2018-09-15] MEDS: BACLOFEN 10 MG TAB GTB SCH ×2 (09:05→12:25)
[2018-09-15] MEDS: GLYCOPYRROLATE 1 MG TAB GTB SCH ×2 (09:05→12:25)
[2018-09-15] MEDS: SUCRALFATE (100 MG/ML) 10ML CUP GTB SCH (09:05)
[2018-09-15] MEDS: clonAZEPAM 0.5 MG TAB GTB SCH ×2 (09:06→12:25)
[2018-09-15] MEDS: POLYETHYLENE GLYCOL 17 GM PACKET GTB SCH (09:06)
[2018-09-15] MEDS: ENOXAPARIN 40 MG/0.4 ML SYG SC SCH (09:16)
[2018-09-15] MEDS: LEVETIRACETAM IV 250 MG in DEXTROSE 5% 100 ML IVPB SCH (10:58)
--- NOTE | 2018-09-15 12:28 | DS ---
Date/Time of Note Date/Time of Note DATE: 09/15/18 TIME: 12:27 Discharge Summary Admission/Discharge Info Admit Date/Time Sep 09, 2018 at 13:35 Discharge Date/Time Discharge Diagnosis Pneumonia Patient Condition: Stable Hospital Course 23 yo male with CP here with pneumoina He was treated with IV antibiotics and respiratory status normalized to baseline. He was mildly hypernatremic which was addressed with free water flushes. He was otherwise maintained on his normal medications for spasticity and seizure prevention and given tube feeds. Home Meds Reported Medications Acetaminophen* (Acetaminophen*) 650 Mg Tablet, 650 MG G-TUBE Q6H PRN for PAIN LEVEL 4-6, #30 TAB 09/09/18 Tizanidine Hcl* (Tizanidine Hcl*) 2 Mg Tablet, 2 MG PO Q6H PRN for SPASTICITY, TAB 09/09/18 Ondansetron Hcl* (Zofran*) 8 Mg Tablet, 8 MG G-TUBE Q6H PRN for NAUSEA AND OR VOMITING, TAB 09/09/18 Polyethylene Glycol* (Polyethylene Glycol*) 17 Gm Powd.pack, 17 GM G-TUBE BID, #30 PACKET 09/09/18 Levetiracetam* (Levetiracetam*) 500 Mg/5 Ml Solution, 250 MG G-TUBE BID, ML 09/09/18 Famotidine* (Famotidine*) 20 Mg Tablet, 20 MG G-TUBE BID, #60 TAB 09/09/18 Baclofen* (Baclofen*) 20 Mg Tablet, 20 MG G-TUBE QID, TAB 09/09/18 Glycopyrrolate* (Glycopyrrolate*) 1 Mg Tablet, 1 MG GTB TID, TAB 09/09/18 Hydroxyzine Hcl* (Hydroxyzine Hcl*) 25 Mg Tablet, 25 MG GTB Q8H PRN for ANXIETY, #30 TAB 09/09/18 Tizanidine Hcl* (Tizanidine Hcl*) 4 Mg Tablet, 8 MG GTB hs, TAB 09/09/18 Sucralfate* (Carafate*) 1 Gm/10 Ml Susp, 1 GM GTB BID, EA 09/09/18 Nystatin* (Nystatin*) 15 Gm Cr, 1 APPLIC TOP BID, #1 TUB 09/09/18 Albuterol Sulfate* (Albuterol Sulfate* Neb) 0.083%-3 Ml Neb, 2.5 MG NEB BID, #30 VIAL 09/09/18 Clonazepam* (Clonazepam*) 2 Mg Tablet, 2 MG GTB TID, TAB 09/09/18 Primary Care Provider Not On Staff Doctor Pending Labs Laboratory Tests Test 09/15/18 06:55 Sodium Level 146 mmol/L (135-144) Potassium Level 4.6 mmol/L (3.5-5.1) Chloride Level 108 mmol/L (97-110) Carbon Dioxide Level 29 mmol/L (21-31) Anion Gap 9 (5-13) Blood Urea Nitrogen 9 mg/dl (7-20) Creatinine 0.44 mg/dl (0.61-1.24) Est Glomerular Filtrat Rate mL/min > 60 mL/min (>60) Glucose Level 136 mg/dl (70-220) Calcium Level 9.3 mg/dl (8.4-10.2) IZABELLA PEOPLES MD Sep 15, 2018 12:28
== END 2018-09-15 16:30 | DRG 871 ==
LOC: E/R 11:56 → TEL 13:35
PROVIDERS: ADMIT Internal Medicine; ATTEND Internal Medicine
PROC: 0D20XUZ Change Feeding Device in Upper Intestinal Tract, External Approach (ICD-10-PCS; principal; 2018-09-12)
DX: A41.9 Sepsis, unspecified organism (principal); J69.0 Pneumonitis due to inhalation of food and vomit; E87.0 Hyperosmolality and hypernatremia; R13.10 Dysphagia, unspecified; G80.9 Cerebral palsy, unspecified; Z74.01 Bed confinement status; Z43.1 Encounter for attention to gastrostomy
CPT/HCPCS: 36415; 71045; 74018; 80048; 80053; 81001; 81003; 82150; 83605; 83690; 83735; 84100; 84484; 85025; 85610; 85730; 87040; 87086; 87400; 93005; 94640; 94664; 96374; C9113; J1650; J1953; J2060; J2405; J2543; J3480; J7030; J7040; Q9967